=== PATIENT | male | born 1935 | race Caucasian/White ===

== ENCOUNTER 2023-12-30 14:48 | Outpatient (OUT) | payer MEDICARE, SELFPAY ==
--- NOTE | 2023-12-30 14:59 | CA_ITS ---
Patient Name: DOMINICK GILL MR#: [id number] : 1935 Exam Date: 12/30/2023 Ordering Doctor: ISAMAR RABAGO ECHOCARDIOGRAM REPORT PROCEDURE: CA ECHO DOPPLER COMPLETE INDICATIONS: Cardiomegaly COMPARISON: None. DESCRIPTION: COMPLETE ECHOCARDIOGRAM Real-time transthoracic echocardiography with 2D, M-mode, spectral and color flow Doppler performed. QUALITY: Technical quality was good. LEFT VENTRICLE: Normal chamber size. Sigmoid septum. LV EF: Global left ventricular systolic function is normal. Calculated left ventricular ejection fraction is 56%. Abnormal septal motion; may be related to bundle branch block. DIASTOLIC: Diastolic function is indeterminate. ATRIAL SEPTUM: Inadequately seen. LEFT ATRIUM: Mild dilatation. RIGHT ATRIUM: Mild dilatation. RIGHT VENTRICLE: Normal chamber size. Normal right ventricular systolic function. TRICUSPID VALVE: Normal mobility and thickness. Mild regurgitation. Mild pulmonary hypertension. RVSP 37mmHg MITRAL VALVE: Normal mobility and thickness. No evidence of mitral valve stenosis. Mild mitral annular calcification. Mild to moderate mitral regurgitation. AORTIC VALVE: Bicuspid appearance. Moderately calcified aortic valve. Mildly diminished mobility. No evidence of aortic valve stenosis. No aortic regurgitation. AORTIC ROOT: Normal diameter and appearance. The ascending aorta is mildly dilated and measures 3.8 cm. PULMONIC VALVE: Normal thickness and mobility. No stenosis. Trivial regurgitation. PERICARDIUM: Anterior free space; trivial effusion versus fat pad. IVC: Collapses with inspirations. Mild dilatation measuring 2.2cm CONCLUSION: 1. Global left ventricular systolic function is normal; visually estimated ejection fraction is 55 to 60% 2. The right ventricle is normal in size and systolic function 3. Biatrial enlargement 4. Mild tricuspid regurgitation 5. Mildly elevated right ventricular systolic pressure; RVSP 37 mmHg 6. Mild to moderate mitral regurgitation 7. Anterior free space; trivial effusion versus fat pad 8. The ascending aorta is mildly dilated Adult Echocardiography Procedure Report Left Ventricle LVEDD (3.7 - 5.6 cm): 3.97 cm LVESD (2.2 - 4.0 cm): 2.74 cm LVIVS thickness (0.6 - 1.2 cm): 1.97 cm LVPW thickness (0.5 - 1.0 cm): 1.10 cm e': 0.09 m/s E - e': 9.22 LVOT Max Gradient: 8.72 mm[Hg] LVOT Area (cm2): 1.48 m/s Peak Velocity (LVOT): 1.48 m/s Mean Velocity (LVOT): 1.02 m/s LVOT Diameter 2.21 cm Left Ventricular Ejection Fraction: 56.49 % Left Atrium LA Volume Index (2D A2C): 39.74 ml/m2 Left Atrium Systolic Dimension: 4.18 cm Mitral Valve MV E to A Ratio: 0.86, 0.82 Mitral Valve A-Wave Peak Velocity: 0.95 m/s Mitral Valve E-Wave Peak Velocity: 0.80 m/s Right Ventricle RV Internal Diastolic Dimension: 3.85 cm Aorta AO Root Diam: 3.40 cm Ascending Ao Diam: 3.83 cm Aortic Valve AoV Area (Peak Bony): 3.17 cm2, 3.10 cm2 AoV Area (VTI): 3.03 cm2, 2.85 cm2 Peak Velocity(Antegrade Flow): 1.83 m/s, 1.75 m/s Peak Gradient(Antegrade Flow): 13.42 mm[Hg], 12.26 mm[Hg] Mean Velocity(Antegrade Flow): 1.29 m/s, 1.31 m/s Mean Gradient(Antegrade Flow): 7.74 mm[Hg], 7.72 mm[Hg] Velocity Time Integral: 45.51 cm, 40.18 cm Tricuspid Valve Peak Velocity (Regurgitant Flow): 2.67 m/s, 2.92 m/s, 2.60 m/s Pulmonic Valve Mean Gradient: 2.35 mm[Hg], 2.55 mm[Hg], 2.77 mm[Hg] Mean Velocity: 0.72 m/s, 0.77 m/s, 0.79 m/s Peak Velocity: 1.09 m/s Peak Gradient: 4.39 mm[Hg], 5.01 mm[Hg], 4.78 mm[Hg] Right Atrium Right Atrium Systolic Pressure: 69.26 ml, 69.26 ml Dictated by: Cortez Chris M.D. on 12/31/2023 at 15:12 Approved by: Cortez Chris M.D. on 12/31/2023 at 15:18
== END 2023-12-30 14:49 | disposition home or self-care (01) ==
LOC: CARD 14:51
PROVIDERS: PCP Family Medicine; Visit Provider Internal Medicine Cardiovascular Disease
DX: I51.7 Cardiomegaly (principal)
CPT/HCPCS: 93306

== ENCOUNTER 2024-09-29 09:00 | Outpatient (OUT) | payer MEDICARE, SELFPAY ==
[2024-09-29 09:32] LABS: Basophils Absolute Auto 0.1 10^3/uL (0.0-0.1); Basophils Percent Auto 0.8 % (0.2-2.0); Eosinophils Absolute Auto 0.6 10^3/uL (0.0-0.7); Eosinophils Percent Auto 7.6 % (0.9-7.0); Hematocrit 37.8 % (42.0-54.0); Immature Granulocytes Abs Auto 0.01 10^3/uL (0.00-0.03); Immature Granulocytes Pct Auto 0.1 % (0.0-0.5); Lymphocytes Absolute Auto 2.1 10^3/uL (1.2-3.8); Lymphocytes Percent Auto 24.9 % (20.5-60.0); Mean Corpuscular HGB Conc 34.4 g/dL (29.9-35.2); Mean Corpuscular Hemoglobin 31.5 pg (25.9-34.0); Mean Corpuscular Volume 91.5 fL (80.0-94.0); Mean Platelet Volume 9.6 fL (9.5-13.5); Monocytes Percent Auto 11.7 % (1.7-12.0); Neutrophils Absolute Auto 4.6 10^3/uL (1.4-6.5); Neutrophils Percent Auto 54.9 % (43.0-75.0); Platelet Count 172 10^3/uL (150-450); Red Blood Count 4.13 10^6/uL (4.70-6.10); Red Cell Distribution Width 13.1 % (11.0-15.0); White Blood Count 8.4 10^3/uL (4.0-11.0)
[2024-09-29 10:14] LABS: Alanine Aminotransferase 40 U/L (16-63); Albumin Globulin Ratio 0.9; Albumin Level 3.3 g/dL (3.4-5.0); Alkaline Phosphatase 117 U/L (46-116); Anion Gap 13.3; Aspartate Amino Transferase 35 U/L (15-37); BUN Creatinine Ratio 21.7; Bilirubin Total 0.4 mg/dL (0.2-1.0); Calcium 9.4 mg/dL (8.5-10.1); Carbon Dioxide 27.3 mmol/L (21.0-32.0); Chloride 104 mmol/L (98-107); Chol HDL Ratio 2.3; Cholesterol 153 mg/dL (<=200); Estimated Average Glucose 120 mg/dL; Estimated GFR (African America >60 (>=60 mL/min/1.73m^2); Estimated GFR (Non-African Ame >60 (>=60 mL/min/1.73m^2); Free T3 2.52 pg/mL (2.18-3.98); Globulin 3.8 g/dL; Glucose 119 mg/dL (74-106); Glycohemoglobin A1C 5.8 % (4.5-6.2); HDL Cholesterol 67 mg/dL (40-60); Potassium 4.6 mmol/L (3.5-5.1); Sodium 140 mmol/L (136-145); Total Protein 7.1 g/dL (6.4-8.2); Triglycerides 63 mg/dL (<=150); VLDL CHOLESTEROL 12.6 mg/dL
[2024-09-30 11:08] LABS: Insulin 19.1 uIU/mL (2.6-24.9)
== END 2024-09-29 09:01 | disposition home or self-care (01) ==
PROVIDERS: PCP Family Medicine; Visit Provider Family Medicine
DX: I12.9 Hypertensive chronic kidney disease with stage 1 through stage 4 chronic kidney disease, or unspecified chronic kidney disease (principal); N18.31 Chronic kidney disease, stage 3a; I50.30 Unspecified diastolic (congestive) heart failure; I44.2 Atrioventricular block, complete; E78.5 Hyperlipidemia, unspecified; R73.09 Other abnormal glucose; I11.0 Hypertensive heart disease with heart failure
CPT/HCPCS: 36415; 80053; 80061; 83036; 83525; 83880; 84436; 84443; 84481; 85025